=== PATIENT | male | born 1985 ===

== ENCOUNTER 2018-05-02 02:19 | Emergency (ER) | payer MEDICAID, OTHER ==
[2018-05-02 02:38] VITALS: TEMP 98.2
[2018-05-02] MEDS ORDERED: Iohexol 240 (50 ml) PO ONE (03:01)
--- NOTE | 2018-05-02 03:30 | ED PDOC ---
HPI: Male Pain Time Seen by Provider: 05/02/18 02:53 Chief Complaint (Nursing): Male Genitourinary Chief Complaint (Provider): Male Genitourinary History Per: Patient History/Exam Limitations: no limitations Onset/Duration Of Symptoms: Days (x3) Current Symptoms Are (Timing): Still Present Additional Complaint(s): 33 year old male arrives to ED with for an evaluation of left- sided testicular swelling associated with left lower abdominal pain ongoing for 3 days. He denies any injury to his teste, urinary complaints, fever, nausea, vomiting, or diarrhea. PMD: Dr. Paulino Aguilar Past Medical History Reviewed: Historical Data, Nursing Documentation, Vital Signs Vital Signs: Last Vital Signs Temp 98.2 F 05/02/18 02:35 Pulse 69 05/02/18 02:35 Resp 17 05/02/18 02:35 BP 128/80 05/02/18 02:35 Pulse Ox 98 05/02/18 02:35 - Medical History PMH: HTN - Surgical History Surgical History: Denies: No Surg Hx Other surgeries: gastric sleeve - Family History Family History: States: Unknown Family Hx - Home Medications Home Medications: Ambulatory Orders Medication Instructions Recorded Naproxen [Naprosyn] 500 mg PO Q12 #14 tab 05/02/18 - Allergies Allergies/Adverse Reactions: Allergies Allergy/AdvReac Type Severity Reaction Status Date / Time No Known Allergies Allergy Verified 05/02/18 02:34 Review of Systems ROS Statement: Except As Marked, All Systems Reviewed And Found Negative Constitutional: Negative for: Fever Gastrointestinal: Positive for: Abdominal Pain (lower left). Negative for: Nausea, Vomiting, Diarrhea Genitourinary Male: Positive for: Other (left testicular swelling). Negative for: Dysuria, Frequency, Incontinence, Hematuria Physical Exam - Reviewed Nursing Documentation Reviewed: Yes Vital Signs Reviewed: Yes - Physical Exam Appears: Positive for: No Acute Distress Head Exam: Positive for: ATRAUMATIC, NORMAL INSPECTION, NORMOCEPHALIC Skin: Positive for: Normal Color Eye Exam: Positive for: Normal appearance ENT: Positive for: Normal ENT Inspection Neck: Positive for: Normal Cardiovascular/Chest: Positive for: Regular Rate, Rhythm Respiratory: Positive for: Normal Breath Sounds. Negative for: Respiratory Distress Gastrointestinal/Abdominal: Positive for: Soft, Tenderness (LLQ mildly), Other ( obese) Male Genital Exam: Positive for: normal genitalia (uncircumcised), testicular tenderness (L) (mildly with left-sided edema), other (normal cremasteric reflex bilaterally). Negative for: erythema (or warmth) Extremity: Positive for: Normal ROM (upper/lower) Neurologic/Psych: Positive for: Alert, Oriented. Negative for: Motor/Sensory Deficits - Laboratory Results Result Diagrams: 05/02/18 03:35 05/02/18 03:35 - ECG O2 Sat by Pulse Oximetry: 98 (RA) Pulse Ox Interpretation: Normal Medical Decision Making Medical Decision Making: Initial Impression: 33 year old male with left testicular swelling and pain secondary to hernia. Initial Plan: * CT ABD/pelvis with PO and IV contrast * Labs * Omnipaque 50ml PO * US testes duplex * Toradol 30mg Time: 0301 --Patient declined for a tuck pointer helper when offered by provider. remains present during genital exam. Time: 0515 --US testes FINDINGS: Right testicle: No mass. No torsion. Left testicle: No mass. No torsion. Epididymides: Increased vascularity of the left epididymis. Scrotum: Small volume left sided hydrocele. Left sided varicocele. IMPRESSION: 1. Increased vascularity of the left epididymis. Findings are suggestive of epididymitis. 2. Small volume left sided hydrocele. 3. Left sided varicocele Time: 0633 --CT ABD/pelvis FINDINGS: Lower thorax: No acute findings. ABDOMEN: Liver: Normal. No mass. Gallbladder and bile ducts: Surgically absent gallbladder. Pancreas: Normal. No ductal dilation. Spleen: Normal. No splenomegaly. Adrenals: Normal. No mass. Kidneys and ureters: Normal. No hydronephrosis. Stomach and bowel: Post sleeve gastrectomy. Appendix: No evidence of appendicitis. PELVIS: Bladder: Unremarkable as visualized. Reproductive: Unremarkable as visualized. ABDOMEN and PELVIS: Intraperitoneal space: Normal. No free air. No significant fluid collection. Bones/joints: No acute fracture. No dislocation. Soft tissues: Unremarkable. Vasculature: Normal. No abdominal aortic aneurysm. Lymph nodes: Normal. No enlarged lymph nodes. IMPRESSION: No definite acute abdominal pathologic finding. Time: 0635 --Labs reviewed: no significant clinical abnormality. Patient is medically stable, reports improvement in symptoms, and requires no further treatment in the ED at this time. Patient will be discharged home. Counseling was provided and all questions were answered regarding diagnosis. There is agreement to discharge plan. Return if symptoms persist or worsen. Clinical Impression: Epididymitis Scribe Attestation: Documented by Adalgisa Ramírez, acting as a scribe for Mik Crow MD. Provider Scribe Attestation: All medical record entries made by the Scribe were at my direction and personally dictated by me. I have reviewed the chart and agree that the record accurately reflects my personal performance of the history, physical exam, medical decision making, and the department course for this patient. I have also personally directed, reviewed, and agree with the discharge instructions and disposition. Disposition - Clinical Impression Clinical Impression: Epididymitis - Patient ED Disposition Is Patient to be Admitted: No Counseled Patient/Family Regarding: Studies Performed, Diagnosis, Need For Followup, Rx Given - Disposition Disposition: Routine/Home Disposition Time: 06:30 Condition: STABLE Prescriptions: Naproxen [Naprosyn] 500 mg PO Q12 #14 tab Forms: [employer] (Monegasque)
[2018-05-02] MEDS ORDERED: Iohexol 240 (50 ml) ONE (03:45)
[2018-05-02 03:46] LABS: BASO % 0.4 % (0.0-2.0); EOS # 0.3 K/uL (0.0-0.7); EOS % 2.6 % (0.0-4.0); HEMOGLOBIN 14.8 g/dL (12.0-18.0); LYMPH # 3.3 K/uL (1.0-4.3); LYMPH % 34.8 % (20.0-40.0); MEAN CELL VOLUME 88.8 fl (80.0-94.0); MEAN CORPUSCULAR HEMOGLOBIN 30.6 pg (27.0-31.0); MEAN CORPUSCULAR HGB CONC 34.5 g/dL (33.0-37.0); MEAN PLATELET VOLUME 8.5 fl (7.2-11.7); MONO % 10.5 % (0.0-10.0); NEUT % 51.7 % (50.0-75.0); RBC 4.84 Mil/uL (4.40-5.90); RED CELL DISTRIBUTION WIDTH 13.5 % (11.5-14.5); WHITE BLOOD COUNT 9.6 K/uL (4.8-10.8)
[2018-05-02 03:52] LABS: INR 1.1; PROTHROMBIN TIME 12.4 Seconds (9.8-13.1)
[2018-05-02 03:54] LABS: PARTIAL THROMBOPLASTIN TIME 34.4 Seconds (25.6-37.1)
[2018-05-02 03:56] LABS: SQUAMOUS EPITHIAL 3 /hpf (0-5); URINE BACTERIA RARE (<OCC); URINE BILIRUBIN NEGATIVE (NEGATIVE); URINE BLOOD NEGATIVE (NEGATIVE); URINE CLARITY CLOUDY (Clear); URINE COLOR AMBER (YELLOW); URINE GLUCOSE (UA) NEG (Normal); URINE LEUKOCYTE ESTERASE NEG Leu/uL (Negative); URINE PROTEIN NEGATIVE (NEGATIVE)
[2018-05-02 03:59] LABS: ALB/GLOB RATIO 1.3 (1.0-2.1); ALBUMIN 4.4 g/dL (3.5-5.0); ALT/SGPT 83 U/L (21-72); AST/SGOT 57 U/L (17-59); BLOOD UREA NITROGEN 11 mg/dl (9-20); CALCIUM 9.1 mg/dL (8.4-10.2); GFR NON-AFRICAN AMERICAN > 60
[2018-05-02] MEDS ORDERED: Iohexol 300 100 ML IJ ONE (06:04)
[2018-05-02] MEDS ORDERED: Sodium Chloride 0.9% 50 ML IV ONE (06:04)
[2018-05-02 08:08] VITALS: BP 103/60; PULSE 88; RESP 18; O2SAT 99
--- NOTE | 2018-05-02 09:00 | CT ---
Date of service: 05/02/2018 PROCEDURE: CT Abdomen and Pelvis with contrast HISTORY: left testicular swelling and abd pain COMPARISON: None. TECHNIQUE: Contrast dose: Radiation dose: Total exam DLP = mGy-cm. This CT exam was performed using one or more of the following dose reduction techniques: Automated exposure control, adjustment of the mA and/or kV according to patient size, and/or use of iterative reconstruction technique. FINDINGS: LOWER THORAX: Unremarkable. LIVER: Unremarkable. No gross lesion or ductal dilatation. GALLBLADDER AND BILE DUCTS: Cholecystectomy. Status post gastric sleeve surgery. PANCREAS: Unremarkable. No gross lesion or ductal dilatation. SPLEEN: Unremarkable. ADRENALS: Unremarkable. No mass. KIDNEYS AND URETERS: Unremarkable. No hydronephrosis. No solid mass. VASCULATURE: Unremarkable. No aortic aneurysm. BOWEL: Unremarkable. No obstruction. No gross mural thickening. APPENDIX: Normal appendix. PERITONEUM: Unremarkable. No free fluid. No free air. LYMPH NODES: Unremarkable. No enlarged lymph nodes. BLADDER: Unremarkable. REPRODUCTIVE: Unremarkable. BONES: No acute fracture. OTHER FINDINGS: None. IMPRESSION: Cholecystectomy. Status post gastric sleeve surgery.
--- NOTE | 2018-05-03 10:08 | US ---
Date of service: 05/02/2018 HISTORY: pain/swelling TECHNIQUE: Realtime sonography through the scrotum with color and doppler flow. COMPARISON: None Available. FINDINGS: RIGHT TESTICLE: Measures 3.7 x 2.3 x 2 cm. Normal echotexture and flow. RIGHT EPIDIDYMIS: Epididymal head measures 0.8 x 1 x 0.5 cm. Grossly unremarkable appearance with normal flow. LEFT TESTICLE: Measures 4.3 x 2.7 x 2.5 cm. No intratesticular mass is seen on the left. Increased vascularity is identified suggesting mild orchitis. LEFT EPIDIDYMIS: Epididymal head measures 0.8 x 1.2 x 0.8 cm. There is increased vascularity in the lateral epididymal body and tail region. Epididymis is also heterogeneous in echogenicity. Findings suggest epididymitis. HYDROCELE: Small left hydrocele. VARICOCELE: Positive left varicocele inferiorly. OTHER FINDINGS: None. IMPRESSION: Left epididymo-orchitis. No ultrasound evidence of torsion. No abscess seen. Left varicocele.
== END 2018-05-02 07:07 | disposition home or self-care (01) ==
LOC: H.ER 02:19
DX: N45.3 Epididymo-orchitis (principal); I10 Essential (primary) hypertension
CPT/HCPCS: 74177; 80053; 81003; 85025; 85610; 85730; 93975; 96374; 99284; J1885; Q9966; Q9967